=== PATIENT | male | born 1940 | race Caucasian/White ===

== ENCOUNTER 2025-04-21 11:55 | Emergency (ER) | payer MEDICARE ==
[~2025-04-21] VITALS: Ht 170.2 cm; Wt 109.1 kg
[~2025-04-21 11:55] MED LIST: ASPI325T88 PO; NAPR-1115 PO; SIMV10TA98 PO
--- NOTE | 2025-04-21 12:06 | ELECTROCARDIOGRAPH REPORT ---
[facility] Test Date: 2025-04-21 Test Time: 12:00:34 Pat Name: SABIHA DEL ANGEL Department: WILL Room: Gender: M [employer]: : 1940 Requested By: LÓPEZ SUN Order Number: [id number] Reading MD: Measurements Intervals [place] Rate: 78 P: 61 DC: 156 QRS: -25 QRSD: 89 T: 78 QT: 375 QTc: 428 Interpretive Statements Sinus rhythm Borderline left axis deviation Abnormal R-wave progression, late transition Please click the below link to view image of tracing.
[2025-04-21 12:21] LABS: MEAN PLATELET VOLUME 8.5 FL (7.4-10.4); RED CELL DISTRIBUTION WIDTH 12.7 % (11.5-14.5)
--- NOTE | 2025-04-21 12:49 | RADIOLOGY REPORT ---
EXAM: DI CHEST,SINGLE VIEW Indication: CP Technique: Single frontal view of the chest was obtained Comparison: None FINDINGS: Lines and Tubes: None Lungs: No focal consolidation. Pleura: No effusion. No pneumothorax. Cardiomediastinal contours: Unremarkable Bones: No acute osseous abnormality. IMPRESSION: No acute cardiopulmonary disease.
[2025-04-21 13:23] LABS: CREATININE 0.96 MG/DL (0.60-1.10); PRO BRAIN NATRIURETIC PEPTIDE 116 PG/ML (0-450); TOTAL CARBON DIOXIDE 24.0 MMOL/L (24-32); eCRCL 55 ML/MIN; eGFR 75 ML/MIN
--- NOTE | 2025-04-21 13:42 | Physician Documentation ---
History of Present Illness General Chief Complaint: Dizziness Stated Complaint: CP Time Seen by MD: 13:28 OK to notify your PCP?: No Primary Medical Doctor: none Source: patient, family, RN/MD, RN notes reviewed Mode of Arrival: POV Exam Limitations: no limitations History of Present Illness Initial Comments 85 year old male, history of tinnitus, presents with concerns of dizziness. The patient reports he woke up from sleep at approximately 0300 this morning with a weird sensation and sound in his head. He has describes the sound as a whooshing and a [place]. His symptoms resolved while lying in bed, however he was unable to return to sleep. At approximately 0630 patient got out of bed to help his dogs but was having difficulty walking. He describes this as feeling off balance and as if he had "zero equilibrium. He also reports nausea and vomiting that began while on the way to the ER. He has vomited a total of 4 times. Currently nausea as mild. He denies history of hypertension. He denies any chest pain, fever, or shortness of breath. Medication Reconciliation Allergies: Coded Allergies: morphine (Verified Adverse Reaction, Mild, N/V, 04/21/25) Scheduled Aspirin (Aspirin EC), 1 TAB PO DAILY, (Reported) Simvastatin (Simvastatin), 1 TAB PO HS, (Reported) Scheduled PRN Naproxen Sodium (Naproxen Sodium), 220 MG PO Q4H PRN for pain, (Reported) Past Medical History Past Medical History: *ENT*, Coronary Artery Disease Other Past Medical History: meniere's disease Past Surgical History: noncontributory Alcohol Use: None Lives In: Home Review of Systems All Other Systems at this time: Reviewed and Negative ROS dizziness as well as other positive symptoms as stated above in the HPI, otherwise all systems are reviewed and negative. Physical Exam Physical Exam Vital Signs: RN Vital Signs have been reviewed: Yes, Temperature: 98.6, Source: Temporal, Heart Rate: 99, Respiratory Rate: 18, BP: 171/85, Pulse Oximetry: 96, Weight: 109.090 Oxygen Flow Rate: 0 Pulse Oximetry Reflects: adequate oxygenation Physical Exam VITALS: Reviewed and as above. GENERAL: Alert, no apparent distress. HEENT: Fatiguing horizontal nystagmus. Normocephalic, atraumatic, PERRL, dry mucosa RESPIRATORY: Lungs clear, normal breath sounds, no respiratory distress. CHEST: No accessory muscle use, no retractions CV: Regular rate, rhythm, no edema, no murmur, No: JVD GI: Soft, non-tender, bowels sounds present, no rebound, guarding, or rigidity MUSCULOSKELETAL: No deformities, no edema SKIN: Warm and dry, no rash NEURO: Oriented x4, 4/5 strength LUE, 5/5 strength RUE. Normal speech. No facial droop. Cranial nerves II-XII intact. PSYCH: Normal mood and affect, no agitation Progress Results/Orders Reviewed/noted all lab results: Yes Results/Orders Medications Received in ER Medications (Trade) Dose Ordered Sig/[place] Route PRN Reason Start Time Stop Time Status Last Admin Dose Admin (Zofran 4mg/2ml vial) 4 mg ONCE ONCE IV 04/21/25 15:20 04/21/25 15:22 DC 04/21/25 15:32 4 MG (0.9% sodium chloride (NS) 1000ml IV soln) 1,000 ml ONCE ONCE IVB 04/21/25 15:20 04/21/25 15:22 DC 04/21/25 15:32 1,000 ML (Antivert tablet) 12.5 mg ONCE ONCE PO 04/21/25 15:25 04/21/25 15:26 DC 04/21/25 15:32 12.5 MG Vital Signs 04/21/25 04/21/25 04/21/25 04/21/25 12:15 13:09 13:32 15:08 Temp 98.6 Pulse 85 99 70 Resp 12 20 18 16 B/P (MAP) 214/99 171/85 (113) 170/83 (112) Pulse Ox 98 96 97 O2 Flow Rate 0 0 0 04/21/25 16:14 Pulse 75 Resp 16 B/P (MAP) 162/67 (98) Pulse Ox 95 O2 Flow Rate 0 Laboratory Tests Test 04/21/25 12:11 04/21/25 13:48 04/21/25 15:08 White Blood Count 11.0 Red Blood Count 5.30 Hemoglobin 15.9 Hematocrit 46.8 Mean Corpuscular Volume 88.4 Mean Corpuscular Hemoglobin 29.9 Mean Corpuscular Hemoglobin Concent 33.9 Red Cell Distribution Width 12.7 Platelet Count 241 Mean Platelet Volume 8.5 Neutrophils (%) (Auto) 71.7 Lymphocytes (%) (Auto) 22.1 Monocytes (%) (Auto) 4.6 Eosinophils (%) (Auto) 0.9 Basophils (%) (Auto) 0.7 Neutrophils # (Auto) 7.8 H Lymphocytes # (Auto) 2.4 Monocytes # (Auto) 0.5 Eosinophils # (Auto) 0.1 Basophils # (Auto) 0.1 CBC Comment Sodium Level 140 Potassium Level 4.0 Chloride Level 105 Carbon Dioxide Level 24.0 Anion Gap 11 Blood Urea Nitrogen 14 Creatinine 0.96 Estimated GFR/1.73 m2 75 BUN/Creatinine Ratio 14.6 Glucose Level 197 H Calcium Level 9.2 Troponin I High Sensitivity 11 13 12 Pro-B-Type Natriuretic Peptide 116 Albumin 4.2 Chemistry Comments Troponin I High Sens Percent Delta 18 7 Troponin I Hi Sens Absolute Change 2 -1 EKG/XRAY/CT/US/VASC/MRI EKG : Additional Comment 1200: EKG interpreted by me to show NSR at a rate of 78bpm. Normal intervals, no acute ST changes. Chest X-Ray : Additional Comments EXAM: DI CHEST,SINGLE VIEW Indication: CP Technique: Single frontal view of the chest was obtained Comparison: None FINDINGS: Lines and Tubes: None Lungs: No focal consolidation. Pleura: No effusion. No pneumothorax. Cardiomediastinal contours: Unremarkable Bones: No acute osseous abnormality. IMPRESSION: No acute cardiopulmonary disease. Reviewed by myself. CT : Interpreted By: radiologist CT: head With Contrast?: No Impression CLINICAL HISTORY: dizziness TECHNIQUE: Helical scanning was performed of the head from the skull base to the vertex. Multiplanar reconstructions were performed. This exam was performed according to our departmental dose optimization program. Up-to-date CT equipment and radiation dose reduction techniques are utilized as appropriate. CTDI 63.5 DLP 1130.9 COMPARISON: None FINDINGS: There is no evidence for acute intracranial hemorrhage, acute ischemic changes, mass, mass effect, or extra-axial fluid collection. There is no hydrocephalus or midline shift. There is no effacement of the cerebral sulci and basal subarachn oid cisterns. The barrera-white matter differentiation is well maintained. There is mild brain volume loss and chronic small vessel ischemic change. The imaged paranasal sinuses are clear. IMPRESSION: NO ACUTE INTRACRANIAL ABNORMALITY SEEN. Reviewed by myself. Medical Decision Making Additional info obtained from: old records (Admitted in 2009 for NSTEMI) Departure Time of Disposition: 16:58 Disposition: 01 HOME / SELF CARE / HOMELESS Impression: Primary Impression: Labyrinthitis Qualified Codes: H83.09 - Labyrinthitis, unspecified ear Condition: Stable Discharge Instructions: Labyrinthitis Additional Instructions: Take medications as prescribed. Also take [id number] antihistamine such as Claritin or Zyrtec. Follow up with the regular doctor. Return to the ER for severe headache, weakness in your extremities, vision changes, chest pain, shortness of breath, fever, or other concerns Education Educated: Patient Educated regarding: diagnosis, treatment, need for follow up Signature Scribe Signature: Scribed for López Schaffer MD by Timbo Mae . 04/21/25 15:37 LÓPEZ SCHAFFER MD Apr 21, 2025 13:42 TIMBO LOPEZ Apr 21, 2025 15:39
[2025-04-21] MEDS: normal saline 1000ML IV soln IVB ONE (15:32)
[2025-04-21] MEDS: ondansetron/PF 4mg/2ml inj IV ONE (15:32)
--- NOTE | 2025-04-21 16:04 | RADIOLOGY REPORT ---
CLINICAL HISTORY: dizziness TECHNIQUE: Helical scanning was performed of the head from the skull base to the vertex. Multiplanar reconstructions were performed. This exam was performed according to our departmental dose optimizat ion program. Up-to-date CT equipment and radiation dose reduction techniques are utilized as appropri ate. CTDI 63.5 DLP 1130.9 COMPARISON: None FINDINGS: There is no evidence for acute intracranial hemorrhage, acute ischemic changes, mass, mass effect, or extra-axial fluid collection. There is no hydrocephalus or midline shift. There is no effacement of the cerebral sulci and basal subarachnoid cisterns. The barrera-white matter differentiation is well marine ntained. There is mild brain volume loss and chronic small vessel ischemic change. The imaged paranasal sinuses are clear. IMPRESSION: NO ACUTE INTRACRANIAL ABNORMALITY SEEN.
[2025-04-21] MEDS ORDERED: PRED20TA PO (17:00)
[2025-04-21] MEDS ORDERED: MECL-226 PO (17:00)
[2025-04-21] MEDS ORDERED: ONDA-243 PO (17:00)
[2025-04-21 17:26] VITALS: BP 162/75; PULSE 74; RESP 16; TEMP 98.6; O2SAT 100
== END 2025-04-21 17:28 | disposition home or self-care (01) ==
LOC: ER 11:56
DX: H83.09 Labyrinthitis, unspecified ear (principal); R42 Dizziness and giddiness; R11.2 Nausea with vomiting, unspecified; R06.02 Shortness of breath; I25.10 Atherosclerotic heart disease of native coronary artery without angina pectoris; Z88.5 Allergy status to narcotic agent; Z79.82 Long term (current) use of aspirin
CPT/HCPCS: 36415; 70450; 71045; 80048; 83880; 84484; 85025; 93005; 96361; 96374; 99285; J2405; J7030; J8597